=== PATIENT | male | born 1950 | race Caucasian/White ===

== ENCOUNTER → 2022-10-30 08:48 | Outpatient (CLI) | payer MEDICARE, OTHER, SELFPAY ==
--- NOTE | ~2022-10-30 | US_ITS ---
Abdominal Sonogram: Real-time sonographic imaging of the abdomen was performed. Clinical History: Abnormal serum enzymes Findings: The liver appears minimally echogenic, with no evidence of bile duct dilatation. There is a 1.7 cm hyperechoic mass in the right hepatic lobe. Main portal vein demonstrates normal direction o f flow. The spleen is normal in size without evidence of focal lesion. The gallbladder is well diste nded, and appears normal with no evidence of gallstone or wall thickening. The common bile duct measu res 3 mm. The visualized pancreas, aorta, and IVC are unremarkable. The right kidney measures 9.6 c m in length and the left kidney measures 10.0 cm. There is no hydronephrosis or renal calculus. Impression: Probable mild fatty infiltration of the liver. 1.7 cm hyperechoic right hepatic lobe mass is most suggestive of small hemangioma. Pre and postcontra st MR could be considered to attempt to further confirm this diagnosis. Reviewed, dictated and finalized at location . Impression: Probable mild fatty infiltration of the liver. 1.7 cm hyperechoic right hepatic lobe mass is most suggestive of small hemangio ma. Pre and postcontrast MR could be considered to attempt to further confirm t his diagnosis.
== END ==
PROVIDERS: PCP Family Medicine; Visit Provider Physician Assistant
DX: R74.8 Abnormal levels of other serum enzymes (principal)
CPT/HCPCS: 76700

== ENCOUNTER → 2022-11-11 09:21 | Outpatient (CLI) | payer MEDICARE, OTHER, SELFPAY ==
--- NOTE | ~2022-11-11 | MR_ITS ---
EXAMINATION: MR abdomen wo/w con DATE: 11/11/2022 10:32 INDICATION: Liver mass TECHNIQUE: Magnetic resonance imaging (MRI) of the abdomen was performed without and with 13 mL Multi marquita intravenous contrast. Sequences included coronal T2-weighted SS-FSE, coronal and axial FS 2D-F IESTA, axial STIR FSE, axial T2-weighted SS-FSE, axial T2-weighted FS SS-FSE, axial diffusion-weighte d SE, axial dual-echo T1-weighted FSPGR, and axial and coronal T1-weighted LAVA. Postcontrast axial T 1-weighted LAVA images were obtained in a time course. Postcontrast coronal T1-weighted LAVA images w ere obtained. COMPARISON: Ultrasound dated 10/30/2022 FINDINGS: Heart size is normal. No pericardial or pleural effusion. There are 3 small lesions in the right hepa tic lobe the the largest measuring 11 mm corresponding in location to the lesion identified on prior ultrasound. Lesions demonstrate restricted diffusion, increased T2 signal and peripheral puddling of contrast which progressively fills in with no evident washout on the delayed images most consistent w ith hemangiomas. Gallbladder, pancreas, spleen, bilateral adrenal glands and kidneys are normal. No p athologically enlarged abdominal and upper pelvic lymphadenopathy. Incidentally noted circumaortic le ft renal veins. Normal bone marrow signal throughout. IMPRESSION: 1. 3 small hepatic lesions, the largest measuring 11 mm corresponding to the lesion on prior ultrasou nd with imaging characteristics on both ultrasound and MRI most consistent with hemangiomas. Reviewed, dictated and finalized at location A. IMPRESSION: 1. 3 small hepatic lesions, the largest measuring 11 mm corresponding to the le shy on prior ultrasound with imaging characteristics on both ultrasound and MR I most consistent with hemangiomas.
== END ==
PROVIDERS: PCP Physician Assistant; Visit Provider Physician Assistant
DX: K76.89 Other specified diseases of liver (principal)
CPT/HCPCS: 74183; A9577